=== PATIENT | male | born 1970 | race Hispanic/Latino ===

== ENCOUNTER 2025-01-23 06:06 | Day surgery (SDC) | payer BC, MEDICARE ==
[~2025-01-23] VITALS: Ht 165.1 cm; Wt 102.1 kg
[2025-01-23] VITALS (10 sets, daily range): BP systolic 107–128; BP diastolic 46–73; PULSE 41–57; RESP 14–18; TEMP 97.1–97.7
[~2025-01-23 06:06] MED LIST: DOXY100C5 PO; LEVO100C5 PO; PRAV80TA75 PO; TAMS-55 PO
[2025-01-23] MEDS ORDERED: 0.9%NACL 1000ML 1,000 ML IV ONE (06:08)
[2025-01-23] MEDS ORDERED: LEVO112C5 PO (06:23)
[2025-01-23] MEDS ORDERED: LIDOCAINE HCL 1% 20 ML VIAL ONE (07:14)
== END 2025-01-23 08:50 | disposition home or self-care (01) ==
LOC: DAH 06:06
PROVIDERS: ATTEND Internal Medicine Gastroenterology
DX: R19.5 Other fecal abnormalities (principal); D12.3 Benign neoplasm of transverse colon; K57.30 Diverticulosis of large intestine without perforation or abscess without bleeding; K64.8 Other hemorrhoids; E78.00 Pure hypercholesterolemia, unspecified; E66.9 Obesity, unspecified; Z80.0 Family history of malignant neoplasm of digestive organs; Z68.39 Body mass index [BMI] 39.0-39.9, adult; Z79.899 Other long term (current) drug therapy
CPT/HCPCS: 45380; 45385; J7030; J2704; A4620; A4649; A4215 ×2; A4223; A4222; A4221; A4663; A4606; J3490